=== PATIENT | male | born 1975 | race Caucasian/White ===

== ENCOUNTER 2023-09-28 03:24 | Emergency (ER) | payer OTHER ==
--- NOTE | 2023-09-28 04:29 | ED Physician Documentation ---
PD HPI ABD PAIN - Stated complaint Stated Complaint: BLOATING,ABD/SIDE PX - Chief complaint Chief Complaint: Abd Pain - History obtained from History obtained from: Patient, Family () - History of Present Illness Timing - onset: Today Timing - duration: Hours Timing - details: Gradual onset, Now resolved Quality: Cramping, Sharp, Pain Location: RLQ Improved by: Laying still Worsened by: Position, Palpation Associated symptoms: Constipation. No: Nausea, Vomiting Similar symptoms before: Diagnosis (constipation and appendicitis) Recently seen: Surgery - Additional information Additional information: Numbness jm Alberto is a 48-year-old male who has had his appendix removed and a complicated operation about 5 weeks ago. He had rupture and required a drain placement. He was on narcotics for 5 days he was on MiraLAX for 2 weeks. He was on a course of antibiotic for 2 weeks as well. He is now visiting would be from [place] and today he is feeling constipated. He believes it has been 2 days since he had a bowel movement. When he developed pain in the right lower quadrant he became concerned when the pain worsened he came to the hospital. Since he is arrived to the emergency department he has passed flatus and his pain is resolving. He has not had fever he has not had vomiting. Review of Systems Constitutional: denies: Fever Ears: denies: Ear pain Nose: denies: Congestion Throat: denies: Sore throat Respiratory: denies: Cough GI: reports: Abdominal Pain, Constipation. denies: Vomiting : denies: Dysuria, Frequency PD PAST MEDICAL HISTORY - Past Medical History Past Medical History: No - Past Surgical History Past Surgical History: Yes General: Appendectomy - Present Medications Home Medications: Ambulatory Orders Medication Instructions Recorded Confirmed Losartan/Hydrochlorothiazide 1 tab PO DAILY 09/28/23 09/28/23 [Hyzaar 50-12.5 Tablet] Methylphenidate HCl [Ritalin LA] 1 cap PO TID 09/28/23 09/28/23 Sertraline [Zoloft] 1 tab PO DAILY 09/28/23 09/28/23 buPROPion [Wellbutrin Sr] 1 tab PO DAILY 09/28/23 09/28/23 - Allergies Allergies/Adverse Reactions: Allergies Allergy/AdvReac Type Severity Reaction Status Date / Time amoxicillin Allergy Hives Verified 09/28/23 03:37 - Social History Does the pt smoke?: No Smoking Status: Never smoker Does the pt drink ETOH?: No Does the pt have substance abuse?: No - Immunizations Immunizations are current?: Yes PD ED PE NORMAL - Vitals Vital signs reviewed: Yes (hypertensive ) - General General: Alert and oriented X 3, No acute distress, Well developed/nourished - HEENT HEENT: Atraumatic, PERRL, EOMI - Neck Neck: Supple, no meningeal sign, No bony TTP - Cardiac Cardiac: RRR, No murmur - Respiratory Respiratory: No respiratory distress, Clear bilaterally - Abdomen Abdomen: Normal bowel sounds, Soft, Non tender, Non distended, No organomegaly - Back Back: No CVA TTP, No spinal TTP - Derm Derm: Normal color, Warm and dry, No rash - Extremities Extremities: No deformity, No edema - Neuro Neuro: Alert and oriented X 3, it risk analyst 2-12 intact, No motor deficit, No sensory deficit, Normal speech Eye Opening: Spontaneous Motor: Obeys Commands Verbal: Oriented GCS Score: 15 - Psych Psych: Normal mood, Normal affect Results - Vitals Vitals: Vital Signs - 24 hr 09/28/23 03:30 Temperature 36.1 C L Heart Rate 74 Respiratory 24 Rate Blood Pressure 145/105 H O2 Saturation 100 Oxygen O2 Source Room air PD Medical Decision Making - ED course Complexity details: considered differential, d/w patient, d/w family ED course: Pennie Maurice presented to the emergency department with concern of increasing pain in the right lower quadrant 5 weeks after having his appendix out. Since arrival to the emergency department he has passed gas in his pain has reduced. We discussed his case and its timeframe and elected to administer a dose of milk of magnesia and forego any further diagnostic testing. Departure - Departure Disposition: 01 Home, Self Care Clinical Impression: Constipation Qualifiers: Constipation type: unspecified constipation type Qualified Code(s): K59.00 - Constipation, unspecified Condition: Stable Instructions: ED Constipation Follow-Up: Your, doctor [Other] Comments: Pennie, today it looks like your constipation has caused you have significant gas pain which appears to be relieved now. We have given you a dose of milk of magnesia and we expect this to be effective within about 6 hours. If you do not have a result in that timeframe take another dose.
[2023-09-28 04:43] VITALS: BP 138/98; O2SAT 97
[2023-09-28] MEDS: MAGNESIUM HYDROXIDE 2,400 MG/30 ML UDC PO STA (04:54)
== END 2023-09-28 05:05 | disposition home or self-care (01) ==
LOC: ED 03:24
DX: K59.00 Constipation, unspecified (principal); Z98.890 Other specified postprocedural states
CPT/HCPCS: 99282; 99283; A9270